=== PATIENT | male | born 2000 | race Two or more races ===

== ENCOUNTER 2023-04-24 02:20 | Emergency (ER) | payer BC ==
[~2023-04-24] VITALS: Ht 185.4 cm; Wt 113.4 kg
[2023-04-24] MEDS ORDERED: LEXAPRO5 MG PO (02:30)
[2023-04-24] MEDS ORDERED: ZESTRIL40 M1 PO (02:30)
== END 2023-04-24 04:06 | disposition home or self-care (01) ==
LOC: ER 02:21
DX: S00.83XA Contusion of other part of head, initial encounter (principal); W07.XXXA Fall from chair, initial encounter; Y93.89 Activity, other specified; Y92.511 Restaurant or cafe as the place of occurrence of the external cause